=== PATIENT | male | born 1940 | race Asian ===

== ENCOUNTER 2024-08-17 11:40 | Emergency (ER) | payer MEDICARE, OTHER ==
[~2024-08-17] VITALS: Ht 165.1 cm; Wt 63.6 kg
[2024-08-17 11:47] VITALS: BP 135/75; PULSE 102; RESP 18; TEMP 97.8; O2SAT 99
[2024-08-17] MEDS ORDERED: METO25 PO (11:55)
[2024-08-17] MEDS ORDERED: MAGN-169 PO (11:55)
[2024-08-17] MEDS ORDERED: MULT-248 PO (11:55)
[2024-08-17] MEDS ORDERED: MIRT-89 PO (11:55)
[2024-08-17] MEDS ORDERED: IBUP-1506 PO (11:55)
[2024-08-17] MEDS ORDERED: MELA10TA20 PO (11:55)
[2024-08-17] MEDS ORDERED: LINA5TAB PO (11:55)
[2024-08-17] MEDS ORDERED: IPRA4AER IH (11:55)
[2024-08-17] MEDS ORDERED: ACET-2247 PO (11:55)
[2024-08-17] MEDS ORDERED: DOCU-385 PO (12:03)
[2024-08-17] MEDS ORDERED: SENN-376 PO (12:03)
[2024-08-17] MEDS ORDERED: ASPI81TA87 PO (12:03)
[2024-08-17] MEDS ORDERED: OLOP5DRO28 OU (12:03)
[2024-08-17] MEDS ORDERED: FINA-27 PO (12:03)
[2024-08-17] MEDS ORDERED: TAMS0.4C94 PO (12:03)
[2024-08-17] MEDS ORDERED: MEMA10TA24 PO (12:03)
[2024-08-17] MEDS ORDERED: AMLO-258 PO (12:03)
[2024-08-17 12:05] LABS: GLUCOMETER DEV NAME(LOC) ERT.6; GLUCOSE,POINT OF CARE 263 MG/DL (70-110)
[2024-08-17] MEDS ORDERED: DEXT30DR5 OU (12:07)
[2024-08-17] MEDS ORDERED: ATOR20TA PO (12:07)
[2024-08-17 14:21] LABS: BASOPHILS % (AUTO) 0.5 % (0.0-2.0); HEMOGLOBIN 14.1 g/dL (13.5-17.5); LYMPHOCYTES % (AUTO) 18.8 % (22.0-44.0); MEAN CORPUSCULAR HEMOGLOBIN 28.9 pg (26.0-34.0); MEAN CORPUSCULAR HGB CONC 32.9 G/dL (31.0-37.0); MEAN CORPUSCULAR VOLUME 88 fL (80-100); MONOCYTES # (AUTO) 0.5 K/uL (0.1-1.0); MONOCYTES % (AUTO) 9.6 % (2.0-9.0); NEUTROPHILS # (AUTO) 3.6 K/uL (1.8-7.7); NEUTROPHILS % (AUTO) 70.1 % (40.0-70.0); PLATELET COUNT (AUTO) 259 K/uL (150-450); RED BLOOD CELL COUNT(AUTO) 4.88 MIL/uL (4.50-5.90); RED CELL DISTRIBUTION WIDTH 14.4 % (11.5-14.5); WHITE BLOOD COUNT (AUTO) 5.1 K/uL (4.5-11.0)
[2024-08-17 14:31] LABS: ANION GAP 12 mmol/L (8-16); CALCIUM, TOTAL 9.5 mg/dL (8.8-10.5); CARBON DIOXIDE 26 mmol/L (22-29); CHLORIDE 97 mmol/L (98-107); GLOMERULAR FILTR. RATE CALC > 60 mL/min (>60); GLUCOSE,RANDOM 157 mg/dL (70-110); POTASSIUM 3.9 mmol/L (3.5-5.1); SODIUM SERUM 134 mmol/L (136-145); UREA NITROGEN, BLOOD 29 mg/dL (7-18)
[2024-08-17 14:35] LABS: ALBUMIN 3.7 g/dL (3.4-5.0); BILIRUBIN,DIRECT 0.1 mg/dL (0.00-0.20); BILIRUBIN,TOTAL 0.7 mg/dL (0.1-1.0); TOTAL PROTEIN, SERUM 7.9 g/dL (6.4-8.2)
[2024-08-17 14:53] LABS: CREATINE KINASE, TOTAL ONLY 252 U/L (39-308); THYROID STIMULATING HORMONE 1.21 uIU/mL (0.36-3.74)
[2024-08-17 15:06] LABS: COVID AG,FIA SOURCE NASAL SWAB
[2024-08-17 15:09] LABS: ALCOHOL, BLOOD (SERUM) < 3 mg/dL (0-10)
[2024-08-17] MEDS: ACETAMINOPHEN 500 MG TABLET PO ONE (15:13)
[2024-08-17 15:23] LABS: SARS-COV2 (COVID) ANTIGEN,FIA Negative (Negative)
[2024-08-17 15:37] LABS: APPEARANCE,URINE CLEAR (CLEAR); BILIRUBIN,URINE NEGATIVE (NEGATIVE); COLOR,URINE LIGHT YELLOW (YELLOW); GLUCOSE, URINE (UA) 300-500 mg/dL (NEGATIVE); KETONES,URINE NEGATIVE (NEGATIVE); LEUKOCYTE ESTERASE ,URINE NEGATIVE (NEGATIVE); NITRATE,URINE NEGATIVE (NEGATIVE); OCCULT BLOOD,URINE TRACE (NEGATIVE); PH,URINE 5.5 (5.0-8.0); PH,URINE DRUG SCREEN 5.5 (5.0-8.0); PROTEIN,URINE 100-200,SEE CONFIRM mg/dL (NEGATIVE); SPECIFIC GRAVITIY, URINE 1.017 (1.003-1.030); UROBILINOGEN,URINE <=1.0 mg/dL (<=1.0)
[2024-08-17 15:44] LABS: ALCOHOL, URINE DRUG SCREEN NEGATIVE (NEGATIVE); AMPHET/METH SCREEN,URINE NEGATIVE (NEGATIVE); BARBITURATE SCREEN, URINE NEGATIVE (NEGATIVE); BENZODIAZEPINES SCREEN,URINE NEGATIVE (NEGATIVE); CANNABINOID SCREEN,URINE NEGATIVE (NEGATIVE); COCAINE SCREEN,URINE NEGATIVE (NEGATIVE); METHADONE SCREEN, URINE NEGATIVE (NEGATIVE); OPIATE SCREEN,URINE NEGATIVE (NEGATIVE); PHENCYCLIDINE SCREEN,URINE NEGATIVE (NEGATIVE)
[2024-08-17] MEDS: HALOPERIDOL 5 MG TABLET PO ONE (15:44)
[2024-08-17 16:34] LABS: BACTERIA,URINE Rare /HPF (None Seen); RBC,URINE 0-2 /HPF (0-2); SQUAMOUS EPITHELIAL CELL,UR Few /LPF (None Seen); WBC,URINE 0-2 /HPF (0-5)
[2024-08-17 16:38] LABS: SULFOSALICYLIC ACID,URINE 1+ (Negative)
== END 2024-08-17 16:50 | disposition home or self-care (01) ==
LOC: EMS 11:58
DX: F03.911 Unspecified dementia, unspecified severity, with agitation (principal); F03.92 Unspecified dementia, unspecified severity, with psychotic disturbance; J44.9 Chronic obstructive pulmonary disease, unspecified; Z79.82 Long term (current) use of aspirin; Z79.84 Long term (current) use of oral hypoglycemic drugs; Z79.899 Other long term (current) drug therapy; Z20.822 Contact with and (suspected) exposure to COVID-19
CPT/HCPCS: 99284; 87426; 80048; 80076; 82550; 82962; 84443; 85025; 36415; 80307; 81001; G0480; 81002